=== PATIENT | female | born 1965 | race Caucasian/White ===

== ENCOUNTER 2017-11-14 09:35 | Outpatient (CLI) | payer BC ==
--- NOTE | 2017-11-14 11:25 | RAD ---
BIPHASIC ESOPHAGRAM: HISTORY: Reflux esophagitis. FINDINGS: The metal trim erector film demonstrates a normal sized heart. The aorta is tortuous. The lungs are clear. A ga stric band is seen, in good position. Swallowing is grossly normal. There is unobstructed flow of contrast through the esophagus and into the stomach. No ulcers, strictures, mass, or diverticulum is seen. Mild tertiary contractions are s een. There is normal passage of contrast from the esophagus into the stomach, at the banding site. No gastroesophageal reflux is seen during the exam or during the Valsalva maneuver. IMPRESSION: Mild tertiary contractions, otherwise unremarkable exam. POS: [facility]
== END 2017-11-14 09:36 | disposition home or self-care (01) ==
LOC: RAD 09:35
PROVIDERS: ATTEND Surgery
DX: K21.9 Gastro-esophageal reflux disease without esophagitis (principal); K22.9 Disease of esophagus, unspecified
CPT/HCPCS: 74220

== ENCOUNTER 2017-12-26 09:28 | Outpatient (CLI) | payer BC ==
--- NOTE | 2017-12-26 11:36 | RAD ---
CHEST 2 IEWS: HISTORY: Preop. COMPARISON: 06/25/07. FINDINGS: Cardiac silhouette and pulmonary vasculature are unremarkable. Mediastinum is midline. No confluent airspace consolidation, pneumothorax, or pleural fluid. IMPRESSION: No active cardiopulmonary abnormalities are demonstrated. POS: [facility]
[2017-12-26 11:37] LABS: #Basophils 0.1 thou/uL (0.0-0.2); #Eosinphils 0.1 thou/uL (0.0-0.7); #Lymphocytes 3.2 thou/uL (1.20-3.40); #Monocytes 0.4 thou/uL (0.11-0.59); #Neutrophils 5.5 thou/uL (1.40-6.50); %Basophils 0.8 % (0.0-1.0); %Eosinophils 1.3 % (0.0-10.0); %Lymphocytes 34.4 % (21.0-51.0); %Monocytes 4.4 % (0.0-10.0); %Neutrophils 59.2 % (42.0-75.0); Hemoglobin 13.9 g/dL (12.0-16.0); Mean Corpuscular HGB CONC 32.8 g/dL (32.0-36.0); Mean Corpuscular Hemoglobin 28.8 pg (27.0-31.0); Platelet Count 236 thou/uL (130-400); RBC Distribution Width 12.4 % (11.5-14.5); Red Blood Cell (RBC) Count 4.83 mill/uL (4.20-5.40); White Blood Cell (WBC) Count 9.3 thou/uL (4.8-10.8)
[2017-12-26 12:01] LABS: ALT (SGPT) 31 U/L (8-55); AST (SGOT) 30 U/L (5-34); Albumin 4.3 g/dL (3.5-5.0); Alkaline Phosphatase 89 U/L (40-150); Anion Gap 15 mmol/L (10-20); BUN (Urea Nitrogen) 15 mg/dL (9.8-20.1); Bilirubin, Total 0.4 mg/dL (0.2-1.2); Calc. Creatinine Clearance 0 mL/min (70-130); Calcium 9.9 mg/dL (7.8-10.44); Carbon Dioxide 20 mmol/L (22-29); Chloride 107 mmol/L (98-107); Estimated GFR-MDRD 88; Globulin 2.6 g/dL (2.4-3.5); Glucose 81 mg/dL (70-105); Potassium 4.4 mmol/L (3.5-5.1); Protein, Total 6.9 g/dL (6.0-8.3); Sodium 138 mmol/L (136-145)
[2017-12-26 12:03] LABS: Hemoglobin A1c 5.5 % (4.0-6.0)
[2017-12-26 12:05] LABS: ALT (SGPT) 31 U/L (8-55); AST (SGOT) 28 U/L (5-34); Albumin 4.3 g/dL (3.5-5.0); Alkaline Phosphatase 91 U/L (40-150); Bilirubin, Direct 0.1 mg/dL (0.1-0.3); Bilirubin, Total 0.4 mg/dL (0.2-1.2); Protein, Total 6.8 g/dL (6.0-8.3)
== END 2017-12-26 09:29 | disposition home or self-care (01) ==
LOC: LABBT 09:28
PROVIDERS: ATTEND Surgery
DX: Z01.818 Encounter for other preprocedural examination (principal); K20.9 Esophagitis, unspecified; E66.01 Morbid (severe) obesity due to excess calories
CPT/HCPCS: 71046; 80053; 83036; 85025; 93005; 93010

== ENCOUNTER 2017-12-26 09:30 | Inpatient (IN) | payer BC ==
[2017-12-26 10:04] VITALS: BMI 41.5
[2018-01-03] MEDS ORDERED: Fentanyl 100 MCG/2 ML VIAL ONE ×2 (06:15→09:53)
[2018-01-03] MEDS ORDERED: HYDROmorphone 0.5 MG/0.5 ML SYRINGE ONE ×2 (06:16→09:29)
[2018-01-03] MEDS ORDERED: Bupivacaine/Epinephrine 0.25% 30 ML VIAL ONE (06:37)
[2018-01-03] MEDS ORDERED: Heparin 5,000 UNITS/ML VIAL ONE (06:39)
[2018-01-03] MEDS ORDERED: CEFAZOLIN/Water 2 GM/20 ML SYRINGE ONE (06:40)
[2018-01-03] MEDS ORDERED: Midazolam HCl 2 mg/2 ml Vial ONE (07:02)
[2018-01-03] MEDS ORDERED: Dextrose 50% Abboject 50 ML SYRINGE SLOW IVP PRN (08:50)
[2018-01-03] MEDS ORDERED: diphenhydrAMINE 50 MG/ML VIAL IVP PRN ×2 (08:50→09:15)
[2018-01-03] MEDS ORDERED: Dextrose 5% in Water 1,000 ML IV PRN (08:50)
[2018-01-03] MEDS ORDERED: hydrALAZINE 20 MG/ML VIAL SLOW IVP PRN (08:50)
[2018-01-03] MEDS ORDERED: Hydrocodone-Acetamin 15 ML UDCUP PO PRN ×2 (08:50→09:19)
[2018-01-03] MEDS ORDERED: Ondansetron HCl/PF 4 MG/2 ML Vial IVP PRN ×2 (08:50→09:15)
[2018-01-03] MEDS ORDERED: Promethazine HCl 25 MG/ML VIAL IM PRN ×2 (08:50→09:15)
[2018-01-03] MEDS ORDERED: Communication Order-Pharmacy FS SCH (09:15)
[2018-01-03] MEDS ORDERED: diphenhydrAMINE 50 MG/ML VIAL IM PRN (09:15)
[2018-01-03] MEDS ORDERED: Naloxone HCl 0.4 mg/ml Vial IV PRN (09:15)
[2018-01-03] MEDS ORDERED: fentaNYL Citrate/PF 2,000 MCG in Sodium Chloride 0.9% 60 ML IV PRN (09:15)
[2018-01-03] MEDS ORDERED: diphenhydrAMINE 25 MG CAP PO PRN (09:15)
[2018-01-03] MEDS ORDERED: Zolpidem Tartrate 5 MG TAB PO PRN (09:15)
--- NOTE | 2018-01-03 11:17 | OP ---
PREOPERATIVE DIAGNOSES: Morbid obesity and dysfunctional LAP-BAND. SURGEON: Chuck Heller M.D. PROCEDURE PERFORMED: Laparoscopic removal of band and port with sleeve gastrectomy, esophagogastrosc opy. INDICATIONS: A 52-year-old female, morbidly obese, who has attempted multiple weight loss programs w [facility]. She has had a band in place. She has been having a lot of problems with dysphagia a nd reflux. FINDINGS: There was quite a bit of scar tissue up around the band that was lysed. The band came out intact. A 38-Bulgarian bougie was used. PROCEDURE IN DETAIL: After informed consent was obtained, the patient was taken to the operating loren m and given general endotracheal anesthesia. She was placed in the supine position. Abdomen was pre pped and draped in usual fashion. Local anesthesia infiltrated subcutaneously and deep. A 12-mm inc ision was performed approximately 8 inches below the xiphoid slightly to the left. Veress needle ins erted. Drop test performed. Pneumoperitoneum was created to a volume of 2 liters of carbon dioxide. Utilizing a bladeless 12-mm trocar and 0-degree laparoscope, direct visual entry of abdominal cavit y was performed. Pneumoperitoneum was created to a pressure of 15 mmHg. A 0-degree laparoscope inse rted under direct vision. A Abel liver retractor inserted. Left lobe of liver retracted superi [place]. The pylorus identified, a 12-mm port placed on the right beneath it, and two 12s placed left s ubcostal, one of which was where the LAP-BAND port was. The tubing of the band was found and divided sharply. The tubing then traced down to the buckle. The buckle was dissected out. The buckle was unlocked. Then the capsule was incised circumferentially around the band. The band was then removed and removed from the abdomen. The omentum was then taken down off the greater curvature utilizing t he LigaSure that was 5 cm from the pylorus. Short gastrics divided with the LigaSure and left crura defined with the LigaSure. A 38-Bulgarian bougie inserted, directed into the antrum. The linear 60 mm green load stapler used to divide the antrum to the bougie, gold load along the bougie, and a series of blues through the angle of His. Although I did use an extra gold where the LAP-BAND was, as it wa s somewhat thickened there. Hemostasis assured. The bougie removed. The video endoscope was insert ed under direct vision and advanced into the sleeve. The staple line inspected. There was no bleedi ng. Staple line then tested by inflating the stomach with pressurized air under water. There was no air leak. Stomach decompressed. Scope removed. The remnant stomach removed from the abdomen throu gh the left upper port site. The LAP-BAND port was dissected out and removed. Hemostasis assured. The fascia closed with 0 Vicryl suture and the GraNee needle. Trocars and retractors removed. The p ort site was irrigated with saline. Hemostasis assured. Subcutaneous reapproximated with interrupte d 3-0 Vicryl. Skin closed with interrupted 4-0 Rapide. Dermabond applied. The patient tolerated th e procedure well and was transferred to recovery in good condition. Sponge and needle count verified correct x2.
[2018-01-03] MEDS: Pantoprazole 40 MG VIAL IVP SCH (11:59)
[2018-01-03] MEDS ORDERED: Ondansetron HCl/PF 4 MG/2 ML Vial ONE (14:25)
[2018-01-03] MEDS ORDERED: Lidocaine 1% PF 5 ML VIAL ONE (14:25)
[2018-01-03] MEDS ORDERED: Glycopyrrolate 0.2 MG/ML 5 ML SYRINGE ONE (14:25)
[2018-01-03] MEDS ORDERED: PHENYLEPHRINE-NS 100 MCG/ML 10 ML SYRINGE ONE (14:25)
[2018-01-03] MEDS ORDERED: Metoclopramide HCl 10 MG/2 ML VIAL ONE (14:25)
[2018-01-03] MEDS ORDERED: Succinylcholine Chloride 20 MG/ML 10 ml SYRINGE FS ONE (14:25)
[2018-01-03] MEDS ORDERED: Ketorolac Tromethamine 30 MG/ML VIAL ONE (14:25)
[2018-01-03] MEDS ORDERED: Dexamethasone 20 MG/5 ML VIAL ONE (14:25)
[2018-01-03] MEDS ORDERED: PROPOFOL 200 MG/20 ML VIAL ONE (14:25)
[2018-01-03] MEDS ORDERED: CEFAZOLIN/Water 2 GM/20 ML SYRINGE SLOW IVP SCH ×2 (15:00→23:00)
[2018-01-03] MEDS: D5 1/2 NS w/20 mEq KCL 1,000 ML IV SCH ×2 (18:16→19:14)
[2018-01-04] MEDS: D5 1/2 NS w/20 mEq KCL 1,000 ML IV SCH ×2 (03:17→18:48)
[2018-01-04 04:59] LABS: #Lymphocytes 2.3 thou/uL (1.20-3.40); #Monocytes 0.8 thou/uL (0.11-0.59); #Neutrophils 10.7 thou/uL (1.40-6.50); %Basophils 0.3 % (0.0-1.0); %Eosinophils 0.2 % (0.0-10.0); %Lymphocytes 16.5 % (21.0-51.0); %Monocytes 5.5 % (0.0-10.0); %Neutrophils 77.6 % (42.0-75.0); Hemoglobin 13.5 g/dL (12.0-16.0); Mean Corpuscular Hemoglobin 29.2 pg (27.0-31.0); Mean Corpuscular Volume 88.3 fL (78.0-98.0); Mean Platelet Volume 8.5 fL (7.4-10.4); Platelet Count 210 thou/uL (130-400); RBC Distribution Width 12.4 % (11.5-14.5); Red Blood Cell (RBC) Count 4.62 mill/uL (4.20-5.40); White Blood Cell (WBC) Count 13.8 thou/uL (4.8-10.8)
[2018-01-04 05:01] LABS: Anion Gap 11 mmol/L (10-20); BUN (Urea Nitrogen) 9 mg/dL (9.8-20.1); Calc. Creatinine Clearance 163 mL/min (70-130); Carbon Dioxide 23 mmol/L (22-29); Chloride 106 mmol/L (98-107); Estimated GFR-MDRD 89; Glucose 136 mg/dL (70-105); Potassium 4.1 mmol/L (3.5-5.1); Sodium 136 mmol/L (136-145)
[2018-01-04] MEDS ORDERED: Enoxaparin Sodium 40 MG/0.4 ML SYRINGE SC SCH (06:00)
--- NOTE | 2018-01-04 10:36 | RAD ---
UPPER GI SINGLE CONTRAST: HISTORY: Postop gastric surgery. COMPARISON: Esophagram 11/14/17. FINDINGS: The patient was given 15 mL of Gastrografin. The contrast did not pass through the stomach after 1 h our. There is mild dilatation of the esophagus. IMPRESSION: Lack of passage of contrast. Although no leak is seen within the proximal stomach, a leak cannot be totally excluded. If clinically warranted, a followup examination is recommended. POS: [facility]
[2018-01-04] MEDS: Pantoprazole 40 MG VIAL IVP SCH (14:08)
[2018-01-05] MEDS: D5 1/2 NS w/20 mEq KCL 1,000 ML IV SCH ×2 (02:58→13:34)
[2018-01-05] MEDS: Pantoprazole 40 MG VIAL IVP SCH (08:33)
[2018-01-05] MEDS ORDERED: Enoxaparin Sodium 40 MG/0.4 ML SYRINGE SC SCH (09:00)
[2018-01-05] MEDS ORDERED: Hydrocodone-Acetamin 15 ML UDCUP PO PRN (10:41)
[2018-01-05 11:30] VITALS: BP 138/83; TEMP 99.1
--- NOTE | 2018-01-05 21:36 | DIS ---
DISCHARGE DIAGNOSIS: Morbid obesity. PROCEDURES DURING ADMISSION: Laparoscopic sleeve gastrectomy, removal of lap band and port, postoper ative Gastrografin swallow, intraoperative esophagogastroduodenoscopy. HOSPITAL COURSE: The patient was admitted, taken to the operating room. She underwent sleeve. Post operatively, she had a swallow that showed hangup of contrast. She was tolerating liquids, but not e nough to go home, so she spend another day. She is now tolerating liquids well. She is discharged h ome in good condition on hydrocodone, Zofran. She will follow up with me in 2 weeks.
== END 2018-01-05 14:00 | disposition home or self-care (01) | DRG 327 ==
LOC: SURG A 01-03 06:01 → SJJU 01-03 11:13
PROVIDERS: ADMIT Surgery; ATTEND Surgery
PROC: 0DB64Z3 Excision of Stomach, Percutaneous Endoscopic Approach, Vertical (ICD-10-PCS; principal; 2018-01-03)
PROC: 0DP64CZ Removal of Extraluminal Device from Stomach, Percutaneous Endoscopic Approach (ICD-10-PCS; 2018-01-03)
DX: K95.09 Other complications of gastric band procedure (principal); Z68.41 Body mass index [BMI] 40.0-44.9, adult; E66.01 Morbid (severe) obesity due to excess calories; K21.9 Gastro-esophageal reflux disease without esophagitis; R13.10 Dysphagia, unspecified
CPT/HCPCS: 36415; 74241; 80048; 85025; 88307; 88312; 94760; C9113; J0131; J1100; J1170; J1644; J1650; J1885; J2001; J2250; J2405; J2704; J2765; J3010; J7050

== ENCOUNTER 2018-10-26 08:20 | Outpatient (CLI) | payer BC ==
--- NOTE | 2018-10-26 09:33 | ULT ---
GALLBLADDER ULTRASOUND: Date: 10/26/18 INDICATION: Postprandial abdominal pain. History of prior gastric surgery for weight loss. FINDINGS: There is evidence of shadowing cholelithiasis. Comet-tail artifact is seen at the gallbladder wall, i ndicative of adenomyomatosis. No abnormal gallbladder wall thickening is evident. No focal hepatic le hansa. No ascites. Yepez's sign reported as negative by study assistant. Common duct is normal measuring 5 mm in diameter. IMPRESSION: 1. Cholelithiasis. 2. Adenomyomatosis. 3. No sonographic evidence to confirm acute cholecystitis. POS: [facility]
== END 2018-10-26 08:21 | disposition home or self-care (01) ==
LOC: SCSULT 08:20
PROVIDERS: ATTEND Surgery
DX: R10.11 Right upper quadrant pain (principal); K80.20 Calculus of gallbladder without cholecystitis without obstruction; K82.8 Other specified diseases of gallbladder
CPT/HCPCS: 76705

== ENCOUNTER 2018-11-12 02:01 | Outpatient (CLI) | payer BC ==
[2018-11-12 10:35] LABS: ALT (SGPT) 13 U/L (8-55); AST (SGOT) 13 U/L (5-34); Albumin 4.1 g/dL (3.5-5.0); Alkaline Phosphatase 86 U/L (40-150); Anion Gap 12 mmol/L (10-20); BUN (Urea Nitrogen) 11 mg/dL (9.8-20.1); Bilirubin, Direct 0.2 mg/dL (0.1-0.3); Bilirubin, Total 0.5 mg/dL (0.2-1.2); Calc. Creatinine Clearance 0 mL/min (70-130); Calcium 10.1 mg/dL (7.8-10.44); Carbon Dioxide 26 mmol/L (22-29); Chloride 108 mmol/L (98-107); Estimated GFR-MDRD 85; Globulin 2.3 g/dL (2.4-3.5); Glucose 86 mg/dL (70-105); Potassium 4.1 mmol/L (3.5-5.1); Protein, Total 6.4 g/dL (6.0-8.3); Sodium 142 mmol/L (136-145)
[2018-11-12 10:38] LABS: Band 3 % (5-11); Eosinophils 2 % (0-10); Hemoglobin 14.1 g/dL (12.0-16.0); Lymphocytes 53 % (21-51); MDiff Complete? YES; Mean Corpuscular HGB CONC 32.4 g/dL (32.0-36.0); Mean Corpuscular Volume 89.6 fL (78.0-98.0); Mean Platelet Volume 8.4 fL (7.4-10.4); Monocytes 1 % (0-10); Neutrophil 40 % (42-75); Platelet Count 204 thou/uL (130-400); RBC Distribution Width 11.8 % (11.5-14.5); RBC Morphology Normal; Reactive Lymphocytes 1 % (0-10); Red Blood Cell (RBC) Count 4.85 mill/uL (4.20-5.40); White Blood Cell (WBC) Count 6.3 thou/uL (4.8-10.8)
--- NOTE | 2018-11-12 17:36 | EKG ---
Test Reason : Blood Pressure : / mmHG Vent. Rate : 056 BPM Atrial Rate : 056 BPM P-R Int : 162 ms QRS Dur : 092 ms QT Int : 418 ms P-R-T Axes : 053 047 041 degrees QTc Int : 403 ms Sinus bradycardia with sinus arrhythmia Abnormal ECG When compared with ECG of 26-DEC-2017 10:52, No significant change was found Confirmed by ANGELA RODRIGUEZ, DR. Latif ([id number]) on 11/12/2018 5:35:39 PM Referred By: SKINNY Confirmed By:DR. Bhavya MILLER MD
== END 2018-11-12 02:02 | disposition home or self-care (01) ==
LOC: LABBT 02:01
PROVIDERS: ATTEND Surgery
DX: Z01.818 Encounter for other preprocedural examination (principal); K80.20 Calculus of gallbladder without cholecystitis without obstruction
CPT/HCPCS: 80053; 80076; 85025; 93005; 93010

== ENCOUNTER 2018-11-14 08:59 | Day surgery (SDC) | payer BC ==
[2018-11-12 10:11] VITALS: BMI 31.8
[2018-11-14] MEDS ORDERED: cefOXitin 2 GM VIAL ONE (09:51)
[2018-11-14] MEDS ORDERED: Sodium Chloride 0.9% 100 ML ONE (09:51)
[2018-11-14] MEDS ORDERED: Midazolam HCl 2 mg/2 ml Vial ONE (10:17)
[2018-11-14] MEDS ORDERED: Bupivacaine/Epinephrine 0.25% 30 ML VIAL ONE (11:14)
[2018-11-14] MEDS ORDERED: Famotidine/PF 20 mg/2ml Vial ONE (11:17)
[2018-11-14] MEDS ORDERED: Fentanyl 100 MCG/2 ML VIAL ONE ×3 (11:17→12:48)
--- NOTE | 2018-11-15 11:34 | OP ---
DATE OF PROCEDURE: 11/14/2018 PREOPERATIVE DIAGNOSIS: Symptomatic cholelithiasis. PROCEDURE PERFORMED: Laparoscopic cholecystectomy. INDICATIONS: A 52-year-old female, who has been having episodic mid epigastric and right upper quadrant pain radiating to back, associated with nausea. Ultrasound showed cholelithiasis. FINDINGS: Small caliber cystic duct. DESCRIPTION OF PROCEDURE: After informed consent was obtained, the patient was taken to the operating room and given general endotracheal anesthesia, placed in supine position. Abdomen was prepped and draped in usual fashion. Local anesthesia infiltrated subcutaneously and deep. A subumbilical incision was performed. Subcu divided sharply. The fascia was grasped with two stay sutures of 0 Vicryl placed in each side of midline. Midline incised. Digital palpation revealed no local adhesions. A blunt 12 mm trocar inserted. Pneumoperitoneum was created to a pressure of 15 mmHg. A 0-degree laparoscope was inserted under direct vision. Three 5 mm ports were placed subcostally. The gallbladder was grasped and advanced superiorly. Peritoneum lysed distally to expose the cystic duct and artery in critical view. The duct and artery triply ligated with hemoclips and divided. The gallbladder removed from its fossa utilizing electrocautery removed from the abdomen through the umbilical port. Hemostasis assured. Trocars and retractors removed. The fascia closed with interrupted 0 Vicryl suture. The skin closed with interrupted 4-0 Rapide. Dermabond applied. The patient tolerated the procedure well, transferred to Recovery in good condition. Sponge and needle count verified correct x2. Job ID: [id number]
== END 2018-11-14 14:30 | disposition home or self-care (01) ==
LOC: SDC 08:59
PROVIDERS: ATTEND Surgery
PROC: 0FT44ZZ Resection of Gallbladder, Percutaneous Endoscopic Approach (ICD-10-PCS; principal; 2018-11-14)
DX: K80.10 Calculus of gallbladder with chronic cholecystitis without obstruction (principal); I10 Essential (primary) hypertension; F32.9 Major depressive disorder, single episode, unspecified; K21.9 Gastro-esophageal reflux disease without esophagitis; Z79.899 Other long term (current) drug therapy
CPT/HCPCS: 88304; J0131; J0694; J2250; J3010; J3490; S0028

== ENCOUNTER 2025-05-28 09:07 | Outpatient (CLI) | payer BC | END 2025-05-28 09:08 | disposition home or self-care (01) | LOC: BICMAMMO 09:07 | PROVIDERS: ATTEND Otolaryngology Plastic Surgery within the Head & Neck | DX: Z12.31 Encounter for screening mammogram for malignant neoplasm of breast (principal); N64.89 Other specified disorders of breast; Z80.3 Family history of malignant neoplasm of breast | CPT/HCPCS: 77063; 77067 ==